=== PATIENT | male | born 1935 | race Asian ===

== ENCOUNTER 2017-03-14 22:28 | Emergency (ER) | payer MEDICARE, MEDICAID ==
[~2017-03-14] VITALS: Ht 165.1 cm; Wt 49.9 kg
[2017-03-14 22:28] VITALS: BP_SYST 96
[2017-03-14] MEDS ORDERED: SEN30 PO (23:00)
[2017-03-14] MEDS ORDERED: SEVE800T8 PO (23:01)
[2017-03-14] MEDS ORDERED: VITA1TAB25 PO (23:02)
[2017-03-14] MEDS ORDERED: MEGE40TA PO (23:03)
[2017-03-14] MEDS ORDERED: COR6.25 PO (23:04)
[2017-03-14] MEDS ORDERED: AMI200 PO (23:05)
[2017-03-14] MEDS ORDERED: LON10 PO (23:05)
[2017-03-14] MEDS ORDERED: SERT25TA PO (23:06)
[2017-03-14] MEDS ORDERED: CHOL500013 PO (23:07)
[2017-03-15 12:35] VITALS: BP_SYST 112
== END 2017-03-15 12:35 | disposition left against medical advice (07) ==
LOC: SED 22:28
DX: M79.604 Pain in right leg (principal); N18.9 Chronic kidney disease, unspecified; Z99.2 Dependence on renal dialysis
CPT/HCPCS: 71010; 93005; 99284